=== PATIENT | female | born 1995 | race Caucasian/White ===

== ENCOUNTER 2019-11-02 11:23 | Emergency (ER) | payer OTHER ==
[2019-11-02] MEDS ORDERED: hydrOXYzine 25 MG TAB ONE (11:45)
[2019-11-02] MEDS ORDERED: Dexamethasone 4 MG TAB ONE (11:45)
[2019-11-02] MEDS ORDERED: Famotidine/PF 20 mg/2ml Vial ONE (12:26)
== END 2019-11-02 13:10 | disposition home or self-care (01) ==
LOC: ERS 11:23
DX: L50.9 Urticaria, unspecified (principal); J45.909 Unspecified asthma, uncomplicated; D64.9 Anemia, unspecified; F41.9 Anxiety disorder, unspecified; F32.9 Major depressive disorder, single episode, unspecified; F17.210 Nicotine dependence, cigarettes, uncomplicated
CPT/HCPCS: 93005; J8540; S0028